=== PATIENT | female | born 1995 | race Caucasian/White ===

== ENCOUNTER 2017-01-05 13:10 | Emergency (ER) | payer OTHER ==
[2017-01-05 13:19] VITALS: BP 122/67; PULSE 70; TEMP 98.3; BMI 22.8
--- NOTE | 2017-01-05 13:55 | PDOC ---
History of Present Illness - General Chief Complaint: Carbon Monoxide Exposure Stated Complaint: EXPOSURE TO CO Time Seen by Provider: 01/05/17 13:40 History Source: Patient Exam Limitations: No Limitations - History of Present Illness Initial Comments: 01/05/17 13:53 21-year-old female sent over from doctor's office to rule out carbon monoxide exposure. Patient complaining of generalized headaches over the past 2 weeks associated with generalized fatigue without nausea, visual changes, dizziness or abdominal pain. As per mother patient has had no change in mentation and states the home is being checked currently for carbon monoxide leakage into the home by the fire department and police department. Mother states is old furnace in the home and has no carbon monoxide detectors in the home. Timing/Duration: getting worse, intermittent Severity: moderate Associated Symptoms: reports: headaches, weakness Past History - Past Medical History Allergies/Adverse Reactions: Allergies Allergy/AdvReac Type Severity Reaction Status Date / Time No Known Allergies Allergy Verified 01/05/17 13:15 Home Medications: Ambulatory Orders NK [No Known Home Medication] 01/05/17 Other medical history: DENIES. - Psycho/Social/Smoking Cessation Hx Anxiety: No Suicidal Ideation: No Smoking History: Never smoked Hx Alcohol Use: No Drug/Substance Use Hx: No Substance Use Type: None Patient Lives Alone: No Lives with/in: parents Review of Systems - Review of Systems Able to Perform ROS?: Yes Constitutional: Yes: Weakness HEENTM: No: Symptoms Reported Respiratory: No: Symptoms reported Cardiac (ROS): No: Symptoms Reported ABD/GI: No: Symptoms Reported : No: Symptoms Reported Musculoskeletal: No: Symptoms Reported Integumentary: No: Symptoms Reported Neurological: Yes: Headache, Weakness Endocrine: No: Symptoms Reported Hematologic/Lymphatic: No: Symptoms Reported *Physical Exam - Vital Signs Last Vital Signs Temp Pulse Resp BP Pulse Ox 98.3 F 70 18 122/67 100 01/05/17 13:16 01/05/17 13:16 01/05/17 13:16 01/05/17 13:16 01/05/17 13:16 - Physical Exam General Appearance: Yes: Nourished, Appropriately Dressed. No: Apparent Distress HEENT: positive: EOMI, PASTORA, TMs Normal, Pharynx Normal. negative: Pale Conjunctivae Neck: positive: Supple Respiratory/Chest: positive: Lungs Clear, Normal Breath Sounds. negative: Respiratory Distress, Accessory Muscle Use Cardiovascular: positive: Regular Rhythm, Regular Rate. negative: Murmur Gastrointestinal/Abdominal: positive: Soft. negative: Tenderness Extremity: positive: Normal Capillary Refill. negative: Pedal Edema Integumentary: positive: Normal Color, Warm, Moist Neurologic: positive: Normal Mood/Affect, Motor Strength 5/5 Medical Decision Making - Medical Decision Making 01/05/17 13:53 Patient sent to the ED for possible carbon monoxide exposure. Patient complaining of generalized fatigue over the past few weeks associated with intermittent generalized headache. Patient has no other complaints and had no acute findings on exam. Patient ordered for ABG and high flow oxygen via nonrebreather 15 minutes. 01/05/17 14:55 Laboratory Tests 01/05/17 01/05/17 13:55 14:05 VBG pH 7.31 L POC VBG pCO2 50.7 POC VBG pO2 25.9 L Mixed VBG HCO3 24.8 Carboxyhemoglobin 0.7 Will repeat vitals and discharge home. Mother instructed to follow-up with police and fire and follow their recommendations. *DC/Admit/Observation/Transfer Diagnosis at time of Disposition: Evaluation by medical service required - Discharge Dispostion Disposition: HOME Condition at time of disposition: Good - Patient Instructions Printed Discharge Instructions: DI for Headache Additional Instructions: Please follow-up with recommendations as discussed with the fire and police department. May take Tylenol for discomfort
[2017-01-05 14:08] LABS: METHEMOGLOBIN 0.9 % (0.4-1.5)
[2017-01-05 14:53] LABS: VENOUS BLOOD GAS HCO3 24.8 meq/L (19-25); VENOUS PH 7.31 (7.32-7.42)
== END 2017-01-05 15:08 | disposition home or self-care (01) ==
LOC: JERFT 13:10
DX: Z77.29 Contact with and (suspected) exposure to other hazardous substances (principal); Y92.018 Other place in single-family (private) house as the place of occurrence of the external cause
CPT/HCPCS: 82375; 82803; 83050; 99281-25